=== PATIENT | male | born 1990 | race Caucasian/White ===

== ENCOUNTER 2023-04-02 13:36 | Outpatient (CLI) | payer MEDICAID, SELFPAY ==
--- NOTE | 2023-04-02 13:46 | CT_ITS ---
WS: [id number] CT ABDOMEN AND PELVIS NONCONTRAST HISTORY: GROSS HEMATURIA TECHNIQUE: Imaging performed through the abdomen and pelvis. Coronal and sagittal reformats are submi tted. All CT scans at [facility] use at least one of these dose optimization techniques: auto mated exposure control; mA and/or kV adjustment per patient size (includes targeted exams where dose is matched to clinical indication); or iterative reconstruction. DLP: 457.59 mGy.cm COMPARISON: 11/14/2016 Lower thorax: Lung bases are clear. Visualized heart is normal. No hiatal hernia. Liver: Normal size liver. No mass or bile duct dilatation. Gallbladder: Normal gallbladder. No pericholecystic fluid or cholelithiasis. No gallbladder wall thic kening. Pancreas: Normal size and attenuation. Normal pancreatic duct. No pancreatitis or mass. Spleen: Normal. Adrenal glands: Normal. No mass. Right kidney: Minimal dilatation of the RIGHT renal pelvis and calyces. 4 mm calcification at the UP junction. No additional renal calcifications. Ureter is normal size distal to the ureteral stone. Left kidney: Normal size kidney with no mass or hydronephrosis. Aorta: Normal abdominal aorta, no aneurysm or atherosclerosis. No free fluid, intraperitoneal air or significant lymphadenopathy. There are a few scattered small me senteric lymph nodes. These lymph nodes are not enlarged and similar to the prior study. GI tract: Normal noncontrast imaging of the stomach, small bowel and colon. No obstruction or wall th ickening. Normal appendix. Abdominal wall: Negative. No hernia. Pelvis: Osseous structures: Unremarkable. IMPRESSION: 1. Mild RIGHT hydronephrosis secondary to a 4 mm UP junction calcification. 2. Normal appendix. 3. No additional renal or ureteral calcifications.
== END 2023-04-02 13:37 | disposition home or self-care (01) ==
PROVIDERS: PCP Family Medicine; Visit Provider Family Medicine
DX: R31.0 Gross hematuria (principal); N13.30 Unspecified hydronephrosis
CPT/HCPCS: 74176

== ENCOUNTER 2023-04-13 21:50 | Emergency (ER) | payer MEDICAID, SELFPAY ==
[2023-04-13 21:53] VITALS: PULSE 96; RESP 22; TEMP 36.3; O2SAT 98; BMI 26.2
--- NOTE | 2023-04-13 22:30 | XRR_ITS ---
PROCEDURE INFORMATION: Exam: XR Abdomen Exam date and time: 04/13/2023 10:59 PM Age: 33 years old Clinical indication: Abdominal pain; Right; Patient HX: C/O RT flank pain. 4mm RT up juntion stone noted on CT dated 04/02/2023; Additional info: Right ureteral stone TECHNIQUE: Imaging protocol: Radiologic exam of the abdomen. Views: Frontal supine view of the abdomen. 1 View. COMPARISON: CT abdomen pelvis wo con [id number] 04/02/2023 1:51 PM FINDINGS: Gastrointestinal tract: Normal. No bowel dilation. Organs: The stone at the right ureteropelvic junction on the comparison CT is not definitively visualized on x-ray. Bones/joints: Unremarkable. XR/XR KUB [id number] IMPRESSION: The stone at the right ureteropelvic junction on the comparison CT is not definitively visualized on x-ray.
--- NOTE | 2023-04-13 22:33 | ED_ITS ---
HPI - Male Genitourinary General: Chief complaint: Urogenital-Male Stated complaint: Possible Kidney Stone Time Seen by Provider: 04/13/23 22:28 History of Present Illness: Patient was diagnosed with a kidney stone on April 02. Patient been managing the stone with hydrocodone and other medication at home. Tonight patient had increasing pain and discomfort which brought him to the ER. Patient did report 1 episode of nausea and vomiting. Patient appears in moderate to severe pain. Patient moves all extremities well. Patient is restless. Patient does take medication for a fungal infection and his depression. Review of Systems General: Reports: 10 or more systems reviewed and unremarkable except in HPI and below : Reports: flank pain (Right side) Physical Exam Const: COMMON NORMALS: alert HENMT: COMMON NORMALS: normocephalic HEAD & SCALP: normocephalic Neck/C-Spine: COMMON NORMALS: full ROM Resp: COMMON NORMALS: normal respiratory effort and clear to auscultation bilaterally AUSCULTATION: clear to auscultation bilaterally Cardio: COMMON NORMALS: regular rate and regular rhythm RATE: regular rate RHYTHM: regular rhythm GI: COMMON NORMALS: Soft to palpation PALPATION: Yes Soft to palpation : BLADDER/KIDNEY EXAM: Yes CVA tenderness on the right Back/Pelvis: GENERAL BACK: Yes CVA tenderness Extremity: COMMON NORMALS: no pedal edema Neuro: SENSORIUM/ORIENTATION: Yes alert Skin: COMMON NORMALS: turgor normal GENERAL SKIN EXAM: turgor normal Course Vital Signs: Vital signs: Vital Signs Temperature 97.4 F L 04/13/23 21:53 Pulse Rate 96 04/13/23 21:53 Respiratory Rate 22 H 04/13/23 21:53 Pulse Oximetry 98 04/13/23 21:53 Oxygen Delivery Me thod Room Air 04/13/23 21:53 MDM - Male Medical Decision Making 33-year-old male patient comes in today for complaints of right flank pain that was uncontrolled at home with medication for renal calculi. Patient appears nontoxic. Patient appears in moderate pain. On exam abdomen soft with some mild tenderness in the right upper quadrant. Vital signs are normal. Differential diagnosis includes urinary tract infection, renal colic, hydronephrosis. CBC and CMP were unremarkable. There is no sign of any kidney compromise. Urinalysis showed no signs of infection. Patient was treated with pain medication and nausea medication with improvement of symptoms. We will rewrite patient for hydrocodone and ketorolac along with promethazine for nausea. Patient was instructed to follow-up with urologist. Case management was requested to help with the urology follow-up appointment. Patient understands return for worsening symptoms such as uncontrolled pain, and high fever. Patient was stable and improved and discharged home. Lab Data 04/13/23 23:14 04/13/23 23:14 Laboratory Results WBC 8.74 10^3/uL (3.29-11.43) 04/13/23 23:14 RBC 5.14 10^6/uL (3.85-5.65) 04/13/23 23:14 Hgb 14.70 g/dL (11.27-16.99) 04/13/23 23:14 Hct 42.9 % (37-53) 04/13/23 23:14 MCV 83.5 fl (82-101) 04/13/23 23:14 MCH 28.6 pg (27-33) 04/13/23 23:14 MCHC 34.3 g/dL (30-55) 04/13/23 23:14 RDW 12.0 % (12.1-15.1) L 04/13/23 23:14 Plt Count 267 10^3/cmm (157-399) 04/13/23 23:14 MPV 9.1 fL (7.4-10.4) 04/13/23 23:14 Neut % (Auto) 69.6 % 04/13/23 23:14 Lymph % (Auto) 21.5 % 04/13/23 23:14 George % (Auto) 6.6 % 04/13/23 23:14 Eos % (Auto) 1.5 % 04/13/23 23:14 Baso % (Auto) 0.6 % 04/13/23 23:14 Neut # (Auto) 6.08 10^3/uL (1.8-7.7) 04/13/23 23:14 Lymph # (Auto) 1.9 10^3/uL (0.8-4.8) 04/13/23 23:14 George # (Auto) 0.6 10^3/uL (0.2-0.9) 04/13/23 23:14 Eos # (Auto) 0.1 10^3/uL (0.0-0.8) 04/13/23 23:14 Baso # (Auto) 0.1 10^3/uL (0.0-0.1) 04/13/23 23:14 Nucleated RBC % (auto) 0 % 04/13/23 23:14 Nucleated RBCs # 0.0 /100WBC 04/13/23 23:14 Sodium 142 mmol/L (136-145) 04/13/23 23:14 Potassium 4.2 mmol/L (3.5-5.1) 04/13/23 23:14 Chloride 108 mmol/L (98-107) H 04/13/23 23:14 Carbon Dioxide 24 mmol/L (22-29) 04/13/23 23:14 Anion Gap 14.2 (5-19) 04/13/23 23:14 BUN 14 mg/dL (6-20) 04/13/23 23:14 Creatinine 0.9 mg/dL (0.7-1.2) 04/13/23 23:14 GFR Calculation 98.4 mL/min (90-130) 04/13/23 23:14 Glucose 117 mg/dL (65-115) H 04/13/23 23:14 Calculated Osmolality 296 mOsm/kg (285-295) H 04/13/23 23:14 Calcium 9.0 mg/dL (8.5-10.5) 04/13/23 23:14 Urine Color Ivelisse (Yellow) 04/13/23 22:25 Urine Appearance Cloudy (CLEAR) A 04/13/23 22:25 Urine pH 5 (5-7) 04/13/23 22:25 Ur Specific [place] 1.030 (1.005-1.030) 04/13/23 22:25 Urine Protein 1+ (Negative) H 04/13/23 22:25 Urine Glucose (UA) Norm (Normal) 04/13/23 22:25 Urine Ketones 1+ (Negative) H 04/13/23 22:25 Urine Blood 3+ (Negative) H 04/13/23 22:25 Urine Nitrate Negative (Negative) 04/13/23 22:25 Urine Bilirubin Neg (Negative) 04/13/23 22:25 Urine Urobilinogen 1 mg/dL (Negative) H 04/13/23 22:25 Ur Leukocyte Esterase Trace (Negative) H 04/13/23 22:25 Urine RBC Too numerous to cnt /hpf (0-2) H 04/13/23 22:25 Urine WBC 5-10 /hpf (0-5) H 04/13/23 22:25 Ur Squamous Epith Cells 0-4 /hpf (0-5) H 04/13/23 22:25 Calcium Oxalate Crystal 5-10 /hpf H 04/13/23 22:25 Amorphous Sediment Not Reportable 04/13/23 22:25 Urine Bacteria Trace /hpf (NONE) 04/13/23 22:25 Discharge Plan Discharge Patient Disposition: Home Clinical Impression: Renal colic on right side Condition: Stable Prescriptions: New hydrocodone-acetaminophen 5-325 mg tablet 1 tab PO Q6H PRN (Reason: pain (scale score 7-10)) Qty: 12 0RF ketorolac 10 mg tablet 10 mg PO Q6H PRN (Reason: pain) 5 Days Qty: 20 0RF promethazine 12.5 mg tablet 12.5 mg PO Q6H PRN (Reason: nausea and vomiting) Qty: 20 0RF Discharge Orders: Discharge ED (Routine); Ordered 04/13/23 Ordered By: Harley Lam Referrals: Michelle Jean Baptiste MD [Primary Care Provider] - Discharge Diet: Usual diet Discharge Activity: Increase activity as tolerated Patient Instructions: Renal Colic (ED), Opioid Safety Activity Restrictions/Additional Instructions: Drink plenty water and fluids. You do not have to over hydrate. Activity as tolerated. Use ketorolac 10 mg 1 tablet every 6 hours as needed for pain. Use hydrocodone as needed for severe pain. Use promethazine as needed for nausea or vomiting. Promethazine and hydrocodone may make you sleepy. Follow-up with primary care as needed. Case management will contact you regarding follow-up appointment with urology. Return to ER for uncontrolled pain, fever greater than 100.4, or new concerns. Coding Level of Care Code ED Transportation Superintendent for Yoni Giordano
[2023-04-13] MEDS: fentaNYL 50 mcg/mL INJ 2mL 100 MCG IVP (22:53)
[2023-04-13] MEDS: ketorolac 30 mg/mL INJ 15 MG IVP (22:53)
[2023-04-13 23:19] LABS: Basophils # 0.1 10^3/uL (0.0-0.1); Basophils % 0.6 %; Eosinophils # 0.1 10^3/uL (0.0-0.8); Eosinophils % 1.5 %; Hematocrit 42.9 % (37-53); Lymphocytes # 1.9 10^3/uL (0.8-4.8); Lymphocytes % 21.5 %; Mean Corpuscular HGB Conc 34.3 g/dL (30-55); Mean Corpuscular Hemoglobin 28.6 pg (27-33); Mean Corpuscular Volume 83.5 fl (82-101); Mean Platelet Volume 9.1 fL (7.4-10.4); Monocytes # 0.6 10^3/uL (0.2-0.9); Monocytes % 6.6 %; Neutrophils # 6.08 10^3/uL (1.8-7.7); Neutrophils % 69.6 %; Nucleated Red Blood Cells % 0 %; Platelet Count 267 10^3/cmm (157-399); Red Blood Count 5.14 10^6/uL (3.85-5.65); White Blood Count 8.74 10^3/uL (3.29-11.43)
[2023-04-13 23:42] LABS: Anion Gap 14.2 (5-19); Blood Urea Nitrogen 14 mg/dL (6-20); Carbon Dioxide 24 mmol/L (22-29); Chloride 108 mmol/L (98-107); Creatinine Clr Calc Pharmacy 149.3731; Glomerular Filtration Rate 98.4 mL/min (90-130); Glucose 117 mg/dL (65-115); Osmolality Calculated 296 mOsm/kg (285-295); Potassium 4.2 mmol/L (3.5-5.1); Sodium 142 mmol/L (136-145)
[2023-04-13 23:47] LABS: Add Urine Microscopic? YES; Bacteria Urine TRACE /hpf; Bilirubin Urine Neg (Negative); Blood Urine 3+ (Negative); Glucose Urine UA Norm (Normal); Ketones Urine 1+ (Negative); Leukocyte Esterase Urine Trace (Negative); Nitrate Urine Negative (Negative); Protein Urine 1+ (Negative); RBC Urine TOO NUMEROUS TO CNT /hpf (0-2); Squamous Epithelial Cell Urine 0-4 /hpf (0-5); Urine Appearance Cloudy (CLEAR); Urine Color Amber (Yellow); Urobilinogen Urine 1 mg/dL (Negative); pH Urine 5 (5-7)
[2023-04-13 23:48] LABS: Add Urine Culture? Yes
--- NOTE | 2023-04-17 09:40 | DCPLANNER ---
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 Patient wanted the information sent to [facility], child welfare caseworker faxed patients information, it will be reviewed and clinic will call patient with appointment information.
== END 2023-04-14 00:14 | disposition home or self-care (01) ==
PROVIDERS: Emergency Provider Nurse Practitioner Family; PCP Family Medicine
DX: N23 Unspecified renal colic (principal)
CPT/HCPCS: 36415; 74018; 80048; 81001; 85025; 87086; 96374; 96375; 99284; J1885; J3010